=== PATIENT | female | born 1955 | race Caucasian/White ===

== ENCOUNTER 2016-08-23 22:07 | Emergency (ER) | payer OTHER ==
[~2016-08-23] VITALS: Ht 170.2 cm; Wt 136.1 kg
[~2016-08-23 22:07] MED LIST: CHLORTHALIDONE25 MG PO; CIPRO500 M1 PO; MASON NATURAL2000 IU PO; MULTI VITAMINS1 TAB PO; SERTRALINE HYD100 MG PO; ZOFRAN ODT4 M1 SL
--- NOTE | 2016-08-23 23:04 | ED DYSPNEA/ASTHMA COMPLAINT ---
History of Present Illness General Chief Complaint: General Adult Stated Complaint: "REALLY BAD COUGH" PER PT Source: patient Exam Limitations: no limitations Vital Signs & Intake/Output Vital Signs & Intake/Output Vital Signs Date Time Temp Pulse Resp B/P Pulse O2 O2 Flow FiO2 Ox Delivery Rate 08/23 2212 97.0 102 20 156/80 96 Room Air ED Intake and Output 08/24 0000 08/23 1200 Intake Total Output Total Balance Patient 300 lb Weight Allergies Coded Allergies: Penicillins (Intermediate, RASH 10/16/15) adhesive (Intermediate, RASH 10/17/15) Uncoded Allergies: PLASTIC BAGS (RASH 03/13/14) Reconcile Medications Albuterol Sulfate (Proair Hfa) 90 MCG HFA.AER.AD 2 PUF INH Q4-6 PRN PRN asthma Azithromycin 250 MG TABLET 1 DP PO AD bronchitis 2 the first day followed by 1 for days 2-5 Chlorthalidone 25 MG TAB 1 TAB PO DAILY BP (Reported) CHOLECALCIFEROL (VITAMIN D3) (Vitamin D) 2,000 UNIT CAPSULE 1 CAP PO DAILY SUPPLEMENT (Reported) Ciprofloxacin HCl (Cipro) 500 MG TABLET 1 TAB PO BID PYELONEPHRITIS Multivitamin (One Daily Multivitamin) 1 EACH TABLET 1 TAB PO DAILY SUPPLEMENT (Reported) Ondansetron (Zofran Odt) 4 MG TAB.RAPDIS 1 TAB SL TID PRN NAUSEA SERTRALINE HCL (Sertraline Hydrochloride) 100 MG TABLET 2 TAB PO BID ANXETY/ DEPRESSION (Reported) Triage Note: PERSISTANT UPPER RESP INFECTION FOR APPROX 1 WEEK PERSISTANT COUGH Triage Nurses Notes Reviewed? yes HPI: This patient is a 61-year-old female who presented to the emergency department today for evaluation of a persistent cough. The patient reported that she was diagnosed with bronchitis earlier this year and was given Tessalon Perles which she never used. She was never started on an antibiotic. She reported that for a period of time the cough seemed to get better, but never completely resolved. She reported that over the last week the cough has gotten progressively worse and she has some sputum production intermittently. She reported that she gets short of breath from the cough. She coughed enough today that made her vomit once. No nausea. She denied any fevers, chills, chest pain, abdominal pain, or any other associated symptoms. (OLGA SMART,JANICE) Past History Travel History Traveled to [place] past 21 day No Medical History Any Pertinent Medical History? 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 No (JANICE ESPINOZA PA-C) Review of Systems Review of Systems Constitutional: Reports: no symptoms. EENTM: Reports: no symptoms. Respiratory: Reports: see HPI. Cardiovascular: Reports: no symptoms. GI: Reports: see HPI. Genitourinary: Reports: no symptoms. Musculoskeletal: Reports: no symptoms. Skin: Reports: no symptoms. Neurological/Psychological: Reports: no symptoms. All Other Systems: Reviewed and Negative (JANICE ESPINOZA PA-C) Physical Exam Physical Exam Respiratory: scattered expiratory wheezes in all lung pérez. Rhonchi heard in the left lower lung pérez. No diminished breath sounds or rales. No stridor. Chest nontender Comments: Well-developed well-nourished person in no acute distress HEENT: Normal EENT exam, moist mucous membranes Pharynx normal. No swelling or edema. Neck: Supple, no lymphadenopathy Back: Normal gait Cardiovascular: Regular rate and rhythm with no murmurs, rubs, or gallops Extremity: Normal and equal pulses Neuro: Alert oriented x3, cranial nerves II through XII grossly intact. Skin: No appreciable rash on exposed skin, skin is warm and dry. Psych: Mood and affect is normal Core Measures ACS in differential dx? Yes Severe Sepsis Present: No Septic Shock Present: No (JANICE ESPINOZA PA-C) Progress Differential Diagnosis: asthma, AMI, bronchitis, costochondritis, CHF, COPD, musculoskeletal pain, pericarditis, pulmonary embolism, pneumonia, unstable angina Plan of Care: Orders Procedure Date/time Status RAPID VIRAL INFLUENZA A 08/23 2308 Complete Current Medications Sig/Giuseppe Start time Last Medication Dose Stop Time Status Admin Methylprednisolone 125 MG ONCE ONE 08/23 2314 CAN (Solu Medrol) 08/24 2315 Microbiology 08/23 2325 NASOPHARYN: Influenza Virus A & B Rapid Smear - COMP Diagnostic Imaging: Viewed by Me: Radiology Read. Discussed w/RAD: Radiology Read. CXR Impression: PATIENT: KELI SYED PRESENT AGE: 61 PATIENT ACCOUNT NO: [id number] : 59 LOCATION: [facility] ORDERING PHYSICIAN: JANICE ESPINOZA PA-C SERVICE DATE: 08/23/16 EXAM TYPE: RAD - XRY-CHEST XRAY, PA AND LATERAL EXAMINATION: XR CHEST CLINICAL INFORMATION: Cough. Rule out pneumonia. COMPARISON: None TECHNIQUE: 2 views of the chest were obtained. FINDINGS: The lungs are well expanded. No dense consolidation, edema, or effusion. No pneumothorax. Bronchial wall thickening noted. The cardiomediastinal silhouette is within normal limits. No acute osseous abnormality. Degenerative changes in the spine. IMPRESSION: No consolidation. Bronchial wall thickening can be seen with a small airways process such as asthma or atypical/viral infection. DICTATED BY: ROHAN BHAT MD DATE/TIME DICTATED:08/23/162350 MULTI CRAFT MAINTENANCE TECHNICIAN:BHARATH DATE/TIME TRANSCRIBED:2350 CONFIDENTIAL, DO NOT COPY WITHOUT APPROPRIATE AUTHORIZATION. < Electronically signed in Other Vendor System> SIGNED BY: ROHAN BHAT MD 08/23/162354 Initial ED EKG: none (OLGA SMART,JANICE) Departure Departure Disposition: HOME OR SELF CARE Condition: Stable Clinical Impression Primary Impression: Bronchitis Referrals: UNKNOWN (PCP) Additional Instructions: Use inhaler as prescribed. Take antibiotic as prescribed and for its full duration. Rest and stay hydrated. Follow-up with your primary care physician. Return for any worsening Departure Forms: Customer Survey General Discharge Information Prescriptions: Current Visit Scripts Albuterol Sulfate (Proair Hfa) 2 PUF INH Q4-6 PRN PRN asthma #1 INHAL Azithromycin 1 DP PO AD #6 TAB 2 the first day followed by 1 for days 2-5 (OLGA SMART,JANICE) PA/PRODUCT ENGINEERING MANAGER Co-Sign Statement Statement: ED Attending supervision documentation- [] I saw and evaluated the patient. I have also reviewed all the pertinent lab results and diagnostic results. I agree with the findings and the plan of care as documented in the PA's/PRODUCT ENGINEERING MANAGER's documentation. [X] I have reviewed the ED Record and agree with the PA's/PRODUCT ENGINEERING MANAGER's documentation. [] Additions or exceptions (if any) to the PAs/PRODUCT ENGINEERING MANAGER's note and plan are summarized below: [] (KAYDEN CORONA,KELSEY) Critical Care Note Critical Care Note Critical Care Time: non-applicable (OLGA SMART,JANICE)
--- NOTE | 2016-08-23 23:55 | RADIOLOGY REPORT ---
EXAMINATION: XR CHEST CLINICAL INFORMATION: Cough. Rule out pneumonia. COMPARISON: None TECHNIQUE: 2 views of the chest were obtained. FINDINGS: The lungs are well expanded. No dense consolidation, edema, or effusion. No pneumothorax. Bronchial wall thickening noted. The cardiomediastinal silhouette is within normal limits. No acute osseous abnormality. Degenerative changes in the spine. IMPRESSION: No consolidation. Bronchial wall thickening can be seen with a small airways process such as asthma or atypical/viral infection.
[2016-08-24] MEDS ORDERED: AZITHROMYCIN250 M1 PO (00:09)
[2016-08-24] MEDS ORDERED: PROAIR HFA8.5 GM INH (00:09)
[2016-08-24 00:13] VITALS: BP 148/84
== END 2016-08-24 00:14 ==
LOC: ERH 22:07
DX: J40 Bronchitis, not specified as acute or chronic (principal)
CPT/HCPCS: 87804; 87804-59